=== PATIENT | female | born 1985 | race American Indian/Alaskan Native ===

== ENCOUNTER 2019-12-02 19:35 | Emergency (ER) | payer SELFPAY ==
--- NOTE | 2019-12-02 20:16 | Emergency Department Report ---
ED ENT HPI - General Chief complaint: Dental/Oral Stated complaint: TOOTH PAIN Time Seen by Provider: 12/02/19 20:11 Source: patient Mode of arrival: Ambulatory Limitations: No Limitations - History of Present Illness Initial comments: 34-year-old -[place] Citizen female presents to the emergency room for 3-day history of tooth ache. Patient states that she had also had a fever for about 3 to 4 days with a T-max of 101. Patient reports that she had some leftover clindamycin and she has taken it for 3 days. Patient reports she is recently taken a half a Percocet without any resolution of pain. Patient denies any trauma. She reports she is aware that she has a bad tooth in the back. Patient reports aggravating factors is eating. Alleviating factors is nothing. Patient denies any past medical history currently takes melatonin for sleep and has no known drug allergies. MD complaint: tooth pain Onset/Timin -: days(s) Location: tooth # (32) Severity: severe Severity scale (0 -10): 10 Quality: stabbing, sharp Consistency: constant Improves with: none Worsens with: eating Context- Dental: poor dental care Associated Symptoms: fever, gum swelling, toothache - Related Data Previous Rx's Medication Instructions Recorded Last Taken Type Clindamycin [Clindamycin CAP] 300 mg PO Q8H #30 cap 12/02/19 Unknown Rx Ibuprofen [Motrin 800 MG tab] 800 mg PO Q8HR PRN #30 tablet 12/02/19 Unknown Rx Allergies Allergy/AdvReac Type Severity Reaction Status Date / Time No Known Allergies Allergy Unverified 12/02/19 20:04 ED Dental HPI - General Chief complaint: Dental/Oral Stated complaint: TOOTH PAIN Time Seen by Provider: 12/02/19 20:11 Source: patient Mode of arrival: Ambulatory Limitations: No Limitations - Related Data Previous Rx's Medication Instructions Recorded Last Taken Type Clindamycin [Clindamycin CAP] 300 mg PO Q8H #30 cap 12/02/19 Unknown Rx Ibuprofen [Motrin 800 MG tab] 800 mg PO Q8HR PRN #30 tablet 12/02/19 Unknown Rx Allergies Allergy/AdvReac Type Severity Reaction Status Date / Time No Known Allergies Allergy Unverified 12/02/19 20:04 ED Review of Systems ROS: Stated complaint: TOOTH PAIN Other details as noted in HPI Comment: All other systems reviewed and negative ED Past Medical Hx - Past Medical History Previous Medical History?: No - Surgical History Past Surgical History?: No - Social History Smoking Status: Current Every Day Smoker Substance Use Type: None - Medications Home Medications: Home Medications Medication Instructions Recorded Confirmed Last Taken Type Clindamycin [Clindamycin CAP] 300 mg PO Q8H #30 cap 12/02/19 Unknown Rx Ibuprofen [Motrin 800 MG tab] 800 mg PO Q8HR PRN #30 tablet 12/02/19 Unknown Rx ED Physical Exam - General Limitations: No Limitations General appearance: alert, in distress - Head Head exam: Present: atraumatic, normocephalic - Eye Eye exam: Present: normal appearance - ENT ENT exam: Present: mucous membranes moist - Neck Neck exam: Present: normal inspection - Respiratory Respiratory exam: Present: normal lung sounds bilaterally. Absent: respiratory distress - Cardiovascular Cardiovascular Exam: Present: regular rate, normal rhythm. Absent: systolic murmur, diastolic murmur, rubs, gallop - GI/Abdominal GI/Abdominal exam: Present: soft, normal bowel sounds - Extremities Exam Extremities exam: Present: normal inspection - Back Exam Back exam: Present: normal inspection - Neurological Exam Neurological exam: Present: alert, oriented X3, normal gait - Psychiatric Psychiatric exam: Present: normal affect, normal mood - Skin Skin exam: Present: warm, dry, intact, normal color. Absent: rash ED Course Vital Signs 12/02/19 19:50 Temperature 99.0 F Pulse Rate 98 H Respiratory 18 Rate Blood Pressure 146/95 O2 Sat by Pulse 99 Oximetry ED Medical Decision Making - Medical Decision Making 34-year-old -[place] Citizen female presents to the emergency room for 3-day history of tooth ache. Patient states that she had also had a fever for about 3 to 4 days with a T-max of 101. Patient reports that she had some leftover clindamycin and she has taken it for 3 days. Patient reports she is recently taken a half a Percocet without any resolution of pain. Patient denies any trauma. She reports she is aware that she has a bad tooth in the back. Patient reports aggravating factors is eating. Alleviating factors is nothing. Patient denies any past medical history currently takes melatonin for sleep and has no known drug allergies. Patient appears to have a dental abscess with gingival enlargement and tenderness with mild swelling to the right lower jaw. Critical care attestation.: If time is entered above; I have spent that time in minutes in the direct care o f this critically ill patient, excluding procedure time. ED Disposition Clinical Impression: Dental abscess Disposition: TO HOME OR SELFCARE Is pt being admited?: No Does the pt Need Aspirin: No Condition: Stable Instructions: Dental Abscess (ED) Additional Instructions: Please complete antibiotics as prescribed. Take ibuprofen as needed for pain management. It is very important you follow-up with a dentist. Prescriptions: Clindamycin [Clindamycin CAP] 300 mg PO Q8H #30 cap Ibuprofen [Motrin 800 MG tab] 800 mg PO Q8HR PRN #30 tablet PRN Reason: Pain , Severe (7-10) Referrals: [facility] [Outside] - 3-5 Days [facility] [Outside] - 3-5 Days Forms: Work/School Release Form(ED)
[2019-12-02 20:48] VITALS: BP 141/92
== END 2019-12-02 21:46 | disposition home or self-care (01) ==
LOC: ED 19:35
DX: K04.7 Periapical abscess without sinus (principal); F17.200 Nicotine dependence, unspecified, uncomplicated; Z79.1 Long term (current) use of non-steroidal anti-inflammatories (NSAID); Z79.899 Other long term (current) drug therapy
CPT/HCPCS: 99282